=== PATIENT | female | born 1985 | race Caucasian/White ===

== ENCOUNTER 2016-06-17 09:43 | Emergency (ER) | payer MEDICAID ==
[2016-06-17] MEDS ORDERED: DEXAMETHASONE 10 MG/ML VIAL PO STA (11:42)
[2016-06-17] MEDS ORDERED: oxyCOD/ACETAMIN 5 MG/325 MG TABLET PO STA (11:42)
[2016-06-17] MEDS ORDERED: oxyCOD/ACETAMIN 5 MG/325 MG TABLET PO ONE (11:50)
[2016-06-17] MEDS ORDERED: CHERRY SYRUP 10 ML UDC PO ONE (11:50)
[2016-06-17] MEDS ORDERED: DEXAMETHASONE 20 MG/5 ML VIAL ONE (11:51)
[2016-06-17] MEDS ORDERED: LIDOCAINE PATCH 5% TOP ONE (13:17)
[2016-06-17] MEDS ORDERED: LIDOCAINE PATCH 5% TOP PRN (13:20)
== END 2016-06-17 13:25 | disposition home or self-care (01) ==
DX: M54.41 Lumbago with sciatica, right side (principal); Z97.5 Presence of (intrauterine) contraceptive device
CPT/HCPCS: 72170; 99283; A9270

== ENCOUNTER 2017-05-25 08:00 | Outpatient (CLI) | payer MEDICAID ==
[2017-06-17 14:12] LABS: HCG,QUALITATIVE BLOOD NEGATIVE
[2017-06-17 14:13] LABS: BASOPHILS # (AUTO) 0.1 10^3/uL (0.0-0.1); BASOPHILS % (AUTO) 0.9 %; EOSINOPHILS # (AUTO) 0.6 10^3/uL (0.0-0.7); EOSINOPHILS % (AUTO) 10.2 %; HGB - HEMOGLOBIN 12.4 g/dL (12.0-16.0); LYMPHOCYTES # (AUTO) 2.7 10^3/uL (1.5-3.5); LYMPHOCYTES % (AUTO) 45.5 %; MEAN CORPUSCULAR HGB CONC 33.2 g/dL (32.0-36.0); MEAN CORPUSCULAR VOLUME 93.3 fL (81.0-99.0); MEAN PLATELET VOLUME 7.8 fL (7.9-10.8); MONOCYTES # (AUTO) 0.5 10^3/uL (0.0-1.0); MONOCYTES % (AUTO) 7.8 %; NEUTROPHILS # (AUTO) 2.1 10^3/uL (1.5-6.6); NEUTROPHILS % (AUTO) 35.6 %; PLT - PLATELET COUNT 241 10^3/uL (130-450); RED BLOOD COUNT 4.01 10^6/uL (4.20-5.40); RED CELL DISTRIBUTION WIDTH 12.3 % (12.0-15.0); WHITE BLOOD COUNT 5.9 x10^3/uL (4.8-10.8)
== END 2017-05-25 23:59 | disposition home or self-care (01) ==
LOC: LAB.F 08:00
PROVIDERS: ATTEND Obstetrics & Gynecology
DX: Z53.9 Procedure and treatment not carried out, unspecified reason (principal)
CPT/HCPCS: 84703; 85025

== ENCOUNTER 2017-05-26 08:00 | Outpatient (CLI) | payer MEDICAID | END 2017-05-26 23:59 | disposition home or self-care (01) | LOC: LAB.F 08:00 | PROVIDERS: ATTEND Obstetrics & Gynecology | DX: Z53.9 Procedure and treatment not carried out, unspecified reason (principal) ==

== ENCOUNTER 2017-05-26 08:00 | Outpatient (CLI) | payer MEDICAID | END 2017-05-26 23:59 | disposition home or self-care (01) | LOC: LAB.F 08:00 | PROVIDERS: ATTEND Obstetrics & Gynecology | DX: N92.0 Excessive and frequent menstruation with regular cycle (principal) | CPT/HCPCS: 36415; 84703; 85025; 86850; 86900; 86901 ==

== ENCOUNTER 2017-05-26 10:38 | Day surgery (SDC) | payer MEDICAID ==
--- NOTE | 2017-05-25 15:13 | PREOP HISTORY & PHYSICAL ---
ANTICIPATED DATE OF ADMISSION: 05/26/2017. IDENTIFICATION: This is a 31-year-old G1-1-1-2, LMP 05/24/2017. HISTORY OF PRESENT ILLNESS: Mahnaz is a patient of [facility] whom I have been seeing since 2013. I saw patient on 10/12/2013 as a referral secondary to a 08/29/2013 ASCUS Pap smear with the presence of positive high risk human papillomavirus. Pap smears were followed and progressed to a low-grade squamous intraepithelial lesion on 2015. Patient underwent a 03/04/2016 cold knife cone biopsy, pathology revealed focal low-grade squamous intraepithelial lesion arising from the transitional zone, negative for invasive carcinoma or high-grade dysplasia. Her resulting Pap smears have been within normal limits. In addition, she has had a history of heavy irregular menstrual bleeding. She would have very heavy periods for 4 of the 5 days of her menstrual cycle. She will change a super tampon every 2-3 hours. She was having some significant dysmenorrhea with which she would cry on the bathroom floor. Her menses had worsened in November 2013, when she had 2 menses in a month. She received a Mirena IUD at the same time of her cold knife cone biopsy. Despite the Mirena IUD, patient continued to have very heavy vaginal bleeding. I discussed with her to do a trial of control pills, in addition to her Mirena IUD. Patient recalled that when she was on the control pill she felt very emotional on the pill. After discussion for patient regarding the options, specifically control pills, the IUD, Depo-Provera, endometrial ablation, hysterectomy, patient stated that she was done with having all this bleeding and dysmenorrhea and worrying about her abnormal Pap smears. She verbalized her desire to proceed with a total laparoscopic hysterectomy with cystoscopy. I discussed with patient the risks, benefits, alternatives, indications, expectations of the aforementioned procedure. Including in the risks were hemorrhage, infection, and damage to surrounding organs, which may be an inadvertent laceration cauterization or ligation of adjacent intestines, bladder, and ureters. Furthermore, with the surgery, she will no longer be able to have children, nor would she have menses. Patient understands that despite her cold knife cone biopsy, she is to still continue having routine Pap smears. After all of patient's questions were answered to her satisfaction, she verbalized her desire to proceed with surgery. Consent forms have been signed. The patient is currently doing well. She denies any nausea, vomiting, fevers, chills, diarrhea, constipation. She has repeatedly said that she does not want any more children, especially since she is status post a tubal sterilization with her last delivery. Her children are currently ages 10 and 8. PAST MEDICAL HISTORY 1. PMDD. 2. Depression. 3. Attention deficit hyperactivity disorder. 4. Anxiety. PAST SURGICAL HISTORY 1. Two deliveries with a bilateral tubal sterilization with her last delivery. 2. Tonsillectomy. 3. 03/04/2016 cold knife cone biopsy secondary to a low-grade squamous intraepithelial lesion. ALLERGIES 1. CODEINE, WITH WHICH SHE HAS HIVES. 2. LATEX, WITH WHICH SHE HAS A RASH. MEDICATIONS 1. Adderall 30 mg XR q.a.m. 2. Lexapro 10 mg q.a.m. SOCIAL HISTORY: She denies any tobacco use. She denies any illicit drug use. She does use alcohol on a social basis. Patient does have 2 children. She is a medical claims assistant. PAST OBSTETRICAL SURGERY: Two deliveries, one at 36 weeks, one at 37 weeks with a tubal sterilization after her last delivery. She did have a spontaneous miscarriage at age 18. PAST GYNECOLOGIC HISTORY: Status post cold knife cone biopsy on 03/04/2016 secondary low-grade squamous intraepithelial lesion on Pap smear. All subsequent Pap smears have been within normal limits. She has had a history of menorrhagia as well as dysmenorrhea. She had a trial of a Mirena IUD for her menorrhagia, but this was unsatisfactory. She has tried control pills in the past, but unfortunately she cannot tolerate it. FAMILY HISTORY: Mother and maternal aunts had uterine carcinoma. REVIEW OF SYSTEMS: Negative unless otherwise stated. OBJECTIVE VITAL SIGNS: Weight is 110 pounds. Height is 63 inches, BMI is 19.5. Blood pressure 116/78. GENERAL: The patient is a well-developed, female in no apparent distress. She is alert and oriented x3. Patient is very pleasant and easy to speak to. She is also very intelligent. HEENT: Within normal limits. CARDIOVASCULAR: Rate is regular. No murmurs or rubs. PULMONARY: Lungs are clear to auscultation bilaterally. ABDOMEN: Soft, nontender. No masses, rebound, rigidity or guarding. SKIN: She has 2 well-healed Pfannenstiel skin incisions. Her skin is loose secondary to her previous pregnancies. A 03/01/2017 Pap smear is negative. LABORATORY DATA: Most recent ultrasound performed on 11/29/2013 reveals a uterus measuring 10.5 x 4.2 x 5.3 cm, anteverted position, normal overall size and echotexture. Endometrium is 4 mm. Cervix unremarkable. Right ovary 2.6 x 1.7 x 1.9 cm. Normal echotexture and blood flow. Left ovary 3 x 2.9 x 3.2 cm, normal echotexture and blood flow, 2 cm dominant follicle. No free fluid. ASSESSMENT 1. A 31-year-old G3, P1-1-1-2. 2. Unsatisfactorily controlled menorrhagia. 3. History of dysmenorrhea. 4. History of low-grade squamous intraepithelial lesion, status post cold knife cone biopsy on 03/04/2016. PLAN 1. We will proceed to a scheduled total laparoscopic hysterectomy and cystoscopy on 05/26/2017. 2. Anticipate the patient going back to home about 3-4 hours after surgery. 3. Counseled patient to take ibuprofen and Tylenol after surgery as her main form of pain control. She has also been given a prescription for Dilaudid. Patient states that both she and the female relatives in her family require more narcotics than most people do. She recalls with her delivery, she would need to take 4 to 5 oxycodone to be equivalent to Dilaudid. In this situation, I have given patient a prescription for Dilaudid where I would normally give oxycodone. 4. Patient to get a hCG, CBC and type and screen in preparation for tomorrow's surgery. 5. Patient to see me at [facility] in 2 weeks for routine postop followup. TD: 05/25/2017 13:33 SVEN
[~2017-05-26 10:38] MED LIST: CELECOXIB 100 MG CAPSULE PO ONE; ceFAZolin 2 GM/50 ML 2 GM/50 ML BAG IV ONE
[2017-05-26] MEDS ORDERED: LACTATED RINGERS 1,000 ML IV ONE ×2 (10:51→13:44)
[2017-05-26] MEDS ORDERED: ACETAMINOPHEN 1,000 MG/100 ML 100 ML IV ONE (11:13)
[2017-05-26] MEDS ORDERED: GLYCOPYRROLATE 1 MG/5 ML VIAL IVP ONE (12:00)
[2017-05-26] MEDS ORDERED: NEOSTIGMINE 1 MG/1 ML 10 ML MDV IVP ONE (12:00)
[2017-05-26] MEDS ORDERED: fentaNYL 100 MCG/2 ML VIAL IVP ONE (12:00)
[2017-05-26] MEDS ORDERED: DEXAMETHASONE 4 MG/ML VIAL IVP ONE (12:00)
[2017-05-26] MEDS ORDERED: PROPOFOL 200 MG/20 ML VIAL IVP ONE (12:00)
[2017-05-26] MEDS ORDERED: ONDANSETRON 4 MG/2 ML VIAL IVP ONE (12:00)
[2017-05-26] MEDS ORDERED: MIDAZOLAM 2 MG/2 ML VIAL IVP ONE (12:00)
[2017-05-26] MEDS ORDERED: BUPIVACAINE 0.25% PF 30 ML VIAL ONE (12:20)
[2017-05-26] MEDS ORDERED: EPINEPHrine 1 MG/ML AMP ONE (12:21)
[2017-05-26] MEDS ORDERED: EPINEPHrine 1 MG/ML AMP IVP ONE (13:05)
[2017-05-26] MEDS ORDERED: BUPIVACAINE 0.25% PF 30 ML VIAL SUBQ ONE ×2 (13:05)
[2017-05-26] MEDS: fentaNYL 100 MCG/2 ML VIAL ONE ×5 (14:47→15:33)
--- NOTE | 2017-05-26 14:54 | OPERATIVE REPORT ---
Operative Report - Other Other Information/Narrative: Date of Operation: 05/26/2017 Surgeon: Jenifer Galvin DO FACOG Racing Secretary: Robbie Mayers MD FACOG Clean Room Assembler: Yuli Espinoza CRNA Anethesia: GET Pre-Op Dx: 1. 31 yo 2. Menorrhagia 3. Dysmenorrhea 4. H/O LGSIL pap Pre-Op Dx: 1. 31 yo 2. Menorrhagia 3. Dysmenorrhea 4. H/O LGSIL pap Procedure: 1. Laparoscopic total hysterectomy 2. Bilateral salpingectomy 3. Cystoscopy Findings: 1. Adhesions between uterus and anterior abdominal wall 2. Partially absent segments of bilateral fallopian tubes 3. Otherwise normal uterus, ovaries, and fallopian tubes 4. Normal liver edge and appendix 5. Bilateral ureteral jets seen during cystoscopy Specimens: 1. Left fallopian tube 2. Uterus and right fallopian tube en-bloc Drains: None EBL: 100 mL Complications: None Dictation: [id number]
[2017-05-26] MEDS ORDERED: KETOROLAC 30 MG/ML VIAL ONE (15:16)
[2017-05-26] MEDS: HYDROmorphone 1 MG/ML SYRINGE ONE ×3 (15:21→15:34)
[2017-05-26] MEDS ORDERED: SODIUM CHLORIDE FLUSH 0.9% 10 ML SYRINGE ONE ×2 (15:30→15:49)
[2017-05-26] MEDS ORDERED: LORazepam 2 MG/ML VIAL ONE (15:46)
[2017-05-26] MEDS ORDERED: ONDANSETRON 4 MG/2 ML VIAL ONE (16:15)
[2017-05-26] MEDS ORDERED: SCOPOLAMINE PATCH TOP ONE (16:22)
[2017-05-26 16:37] VITALS: BP 119/62
--- NOTE | 2017-05-27 14:14 | OPERATIVE REPORT ---
DATE OF OPERATION: 05/26/2017 PREOPERATIVE DIAGNOSES 1. A 31-year-old G3, P1-1-1-2. 2. Menorrhagia. 3. Dysmenorrhea. 4. History of low-grade squamous intraepithelial lesion Pap smear. POSTOPERATIVE DIAGNOSES 1. A 31-year-old G3, P1-1-1-2. 2. Menorrhagia. 3. Dysmenorrhea. 4. History of low-grade squamous intraepithelial lesion Pap smear. PROCEDURE 1. Laparoscopic total hysterectomy. 2. Bilateral salpingectomy. 3. Cystoscopy. SURGEON: Jenifer Galvin DO, FACOG COST ESTIMATING CLERK: Robbie Mayers MD, FACOG BLENDER CONVEYOR OPERATOR: Yuli Espinoza CRNA ANESTHESIA: General endotracheal tube. FINDINGS 1. Adhesions between the uterus and anterior abdominal wall, as well as between the omentum and anterior abdominal wall. 2. Partially absent segments of bilateral fallopian tubes, consistent with a prior tubal sterilization. 3. Otherwise, normal uterus, ovaries, and fallopian tubes. 4. Normal liver edge and appendix. 5. Bilateral ureteral jets seen during cystoscopy at the termination of this surgery. SPECIMENS 1. Left fallopian tube. 2. Uterus and right fallopian tube en bloc, both specimens placed in the same specimen container. DRAINS: None. ESTIMATED BLOOD LOSS: 100 mL COMPLICATIONS: None. BRIEF HISTORY: Patient is a patient of [facility] with whom I have been taking care of. Patient was first referred to me secondary to history of ASCUS Pap smears. The Pap smears were watched, and it progressed to a low-grade squamous intraepithelial lesion. Patient did get a cold knife cone biopsy, which was consistent with the Pap smears. The margins were clear. Cold knife cone was performed in 2013. Since then, her Pap smears have within normal limits. In the recent couple of years, patient has been having worsening menorrhagia and dysmenorrhea. She was unable to do a trial of control pill since in the past she has had too many emotional swings with it. She did try the Mirena IUD in order to help alleviate the menorrhagia. Unfortunately, none had worked to her satisfaction. Patient at this point wanted definitive therapy with a hysterectomy. I discussed with the patient the risks, benefits, alternatives, indications, expectations of a total laparoscopic hysterectomy, bilateral salpingectomy, and cystoscopy. Patient understood that we can still try different methods of controlling her symptoms, including systemic control pills, the IUD again, and endometrial ablation. Patient understood that there were risks of hemorrhage, infection and damage to organs, specifically for an inadvertent laceration, cauterization, or ligation of the adjacent ureters, bladder, and intestines. Patient understood that with this procedure she will no longer be able to have menses, nor will she be able to have children. After all of patient's questions were answered to her satisfaction, she verbalized her desire to proceed with surgery. Consent forms have been signed. OPERATION IN DETAIL: Patient was identified, consented, and taken to the operating room where IV access was already in place. She was given sequential compression devices which were placed on her lower legs and turned on. Two grams of Ancef were given to patient for postoperative cellulitis prophylaxis. She was then given satisfactory general endotracheal tube anesthesia as per Yuli Espinoza. She was then prepped and draped in normal sterile fashion in the lithotomy position using Yellofin stirrups. Payton catheter was placed in the bladder. A timeout was performed, which correctly identified the patient, site of the procedures, and the procedures themselves. A medium VCare uterine manipulator and colpotomizer was placed in the uterus and cervix. Next, 3 laparoscopic incisions were identified in the abdomen. The first was in the subumbilical fold, the next ones in the right lower quadrant and the left lower quadrants. These quadrant sites were identified by finding the respective anterior superior iliac spine and moving, 2 fingerbreadths superior and medial to these points. All 3 laparoscopic sites were injected with 0.5% lidocaine with epinephrine. Approximately a total of 15 mL was used. Entrance of the abdomen was made directly with a Visiport trocar. No trauma to intra-abdominal organs was noted. CO2 gas was then used to insufflate the abdomen, and visual confirmation of entry into the abdomen was made. Satisfactory pneumoperitoneum was obtained. Inspection of the abdomen revealed a normal appendix and liver edge. There were significant adhesions of the omentum to the anterior abdominal wall, as well as between the uterus and the anterior abdominal wall. These findings are most likely consistent with patient's history of delivery x2. It was patient's understanding that she had both fallopian tubes removed during her last delivery. Apparently, she only underwent a partial salpingectomy. The adhesions between the omentum and the anterior abdominal wall were first addressed. These adhesions were lysed using a LigaSure. Next, attention was turned towards the right uterus. Since the patient's uterus was rotated so that the right portion of the uterus was rotated anteriorly and the left portion of the uterus was rotated posteriorly. The right side was more free than the left side. The right fallopian tube was identified and followed out to its fimbriated end. The fallopian tube was then clamped, cut, and cauterized using the LigaSure. The incision was made on the right round ligament and extended inferiorly through the broad ligament. An incision was made then in the adhesion between the uterus and anterior abdominal wall. The uterus was then taken down from the anterior abdominal wall. This released a large amount of adhesions. Better visualization was obtained, and we further took down the right side. The right uterine artery was identified, clamped, cauterized, and incised using a LigaSure. A bladder flap was then developed bluntly and with electrocautery. The cardinal ligaments were also clamped, cauterized, and incised. The left aspect of the uterus was then addressed. The left fallopian tube was identified and followed to its fimbriated end. The left fallopian tube was then clamped, cauterized, and incised just inferiorly to the mesosalpinx. In similar fashion, the round ligament and broad ligament were then clamped, cauterized, and incised with the LigaSure. This incision was carried inferiorly , so that the uterine artery was similarly transected. Finally, the right cardinal ligaments were clamped, cauterized, and incised. The bladder flap was further developed. At this point in time, the edges of the VCare colpotimizer cups were identified as they were seen as indentations in the vagina. An incision was made with the Harmonic. The cervix was then excised from the vagina. The LigaSure was used to obtain hemostasis on the vaginal cuff, mainly on the posterior aspect. The vaginal cuff was then closed with a running stitch of V-Loc 2-0. The pelvis was then copiously irrigated and found to be hemostatically stable. The ovaries looked within normal limits. Cystoscopy was then performed using a 0-degree cystoscope. Saline solution was used as a distending medium. The bladder was fully inspected and no bleeding, suture material, cautery, or lacerations were seen in the bladder. The left and right ureteral orifices were identified and jets were seen coming out bilaterally. At this point in time, the procedure had been completed. All instruments were removed out of the abdomen and vagina. CO2 was allowed to egress into the atmosphere, thus relieving the pneumoperitoneum. The Payton catheter was also left outside after cystoscopy. All sponge, lap and needle counts were correct x 2 as per nurse report. The patient tolerated the procedure well and was taken back to the recovery room in stable condition. Patient will be discharged to home later today after postoperative criteria have been met. Patient already has a prescription for Dilaudid for postoperative pain control should ibuprofen and Tylenol not take care of the majority of her pain. Patient is to see me at [facility] in 2 weeks for routine postoperative incision check. Patient understands that she still needs to do routine Pap smear screenings, given her history of low-grade squamous intraepithelial lesion Pap smears and cold knife cone biopsy. TD: 05/26/2017 21:36 SVEN
== END 2017-05-26 10:39 | disposition home or self-care (01) ==
LOC: SDS 10:38
PROVIDERS: ATTEND Obstetrics & Gynecology
PROC: 0UT9FZZ Resection of Uterus, Via Natural or Artificial Opening With Percutaneous Endoscopic Assistance (ICD-10-PCS; principal; 2017-05-26 11:45)
PROC: 0UT7FZZ Resection of Bilateral Fallopian Tubes, Via Natural or Artificial Opening With Percutaneous Endoscopic Assistance (ICD-10-PCS; 2017-05-26 11:45)
DX: N92.0 Excessive and frequent menstruation with regular cycle (principal); N94.6 Dysmenorrhea, unspecified; N83.8 Other noninflammatory disorders of ovary, fallopian tube and broad ligament; Z87.410 Personal history of cervical dysplasia; K66.0 Peritoneal adhesions (postprocedural) (postinfection); F32.81 Premenstrual dysphoric disorder
CPT/HCPCS: 58552; 88307; A9270; J0131; J0690; J1170; J2060; J3490; J7120

== ENCOUNTER 2017-06-17 08:33 | Emergency (ER) | payer MEDICAID ==
[2017-06-17] MEDS ORDERED: oxyCODONE 5 MG TABLET PO STA ×2 (09:58→12:48)
[2017-06-17] MEDS ORDERED: DEXAMETHASONE 10 MG/ML VIAL PO STA (09:58)
--- NOTE | 2017-06-17 10:02 | ED Physician Documentation ---
History of Present Illness - Stated complaint Stated Complaint: R FOOT NUMB,R LEG PX - Chief complaint Chief Complaint: General - Additonal information Additional information: hx from pt 31 f 3 wk s/p hyst for 2B uterine cancer also longer hx sciaitica - never saw PMD for same today inc lack pain and mik S1 dermatome radicular pain and numbness to lateral R foot and urinary incontinence no fever per op report general anesthesia not spinal Review of Systems Constitutional: denies: Fever Cardiac: denies: Chest pain / pressure Respiratory: denies: Dyspnea GI: denies: Abdominal Pain : reports: Hysterectomy. denies: Incontinent, Now EGA Musculoskeletal: reports: Back pain, Extremity pain Neurologic: reports: Numbness Immunocompromised: denies: Immunocompromised PD PAST MEDICAL HISTORY - Past Medical History Cardiovascular: None Respiratory: None Endocrine/Autoimmune: None GI: None : None HEENT: None Psych: Depression, Anxiety Musculoskeletal: None Derm: None - Past Surgical History Past Surgical History: Yes /SUPERVISOR SUNGLASSES: section, Tubal ligation HEENT: Tonsil/Adenoidectomy - Present Medications Home Medications: Ambulatory Orders Medication Instructions Recorded Confirmed Dextroamphetamine/Amphetamine 30 mg PO DAILY 05/26/17 05/26/17 [Adderall Xr 30 mg Capsule] Escitalopram [Lexapro] 10 mg PO DAILY 05/26/17 05/26/17 Estradiol [Estrace] 1 mg PO DAILY 06/17/17 HYDROcod/ACETAM 5/325 [[place] 5/325] 1 ea PO Q6H PRN #10 tablet 06/17/17 predniSONE [Deltasone] 20 mg PO [id number] #21 tab 06/17/17 - Allergies Allergies/Adverse Reactions: Allergies Allergy/AdvReac Type Severity Reaction Status Date / Time latex Allergy Severe Hives Verified 06/17/17 08:46 codeine AdvReac Rash Verified 06/17/17 08:46 - Social History Does the pt smoke?: No Smoking Status: Never smoker Does the pt drink ETOH?: No Does the pt have substance abuse?: No - Immunizations Immunizations are current?: Yes - POLST Patient has POLST: No PD ED PE NORMAL - Vitals Vital signs reviewed: Yes - Cardiac Cardiac: RRR - Respiratory Respiratory: No respiratory distress, Clear bilaterally - Abdomen Abdomen: Soft, Non tender - Back Back: No spinal TTP (and no focal redness swelling TTP) - Derm Derm: Normal color - Extremities Extremities: No edema, No calf tenderness / cord - Neuro Neuro: Other (no saddle anesthesia, dec seansation R S1, hip flex/knee ext/foot dorsi plantar felxion/great toe ext 5/5, no clonus, neg SLR (pain is severe down leg either way)) Results - Vitals Vitals: Vital Signs - 24 hr 06/17/17 06/17/17 06/17/17 08:41 12:15 14:34 Temperature 36.8 C 37.0 C 37.1 C Heart Rate 94 85 84 Respiratory 15 18 20 Rate Blood Pressure 134/76 H 102/56 L 121/66 O2 Saturation 100 98 98 Oxygen O2 Source Room air - Rads (name of study) MRI L spine with / without Radiology: See rad report (no cauda equina or epidural abscess or mets - does have some small HNP one of which is compressing R S1 nerve root) Departure - Departure Disposition: 01 Home, Self Care Clinical Impression: Sciatica Qualifiers: Laterality: right Qualified Code(s): M54.31 - Sciatica, right side Condition: Good Instructions: Lumbar Radiculopathy, ED Sciatica Follow-Up: JOHN SMYTH [Primary Care Provider] - Prescriptions: HYDROcod/ACETAM 5/325 [[place] 5/325] 1 ea PO Q6H PRN #10 tablet PRN Reason: Severe Pain predniSONE [Deltasone] 20 mg PO [id number] #21 tab Comments: The MRI does not show any cancer in your spine. Also no spinal cord compression or infection of the spine. There is a small herniated disk putting pressure on the right S1 nerve root which would explain your pain and numbness I recommend a course of steroids to decrease the nerve irritation and pain medications to be used sparingly Many herniated disks do not need any surgery etc - usually rest and physical therapy are recommended as first line of treatment - please discuss with your PMD Forms: Activity restrictions Discharge Date/Time: 06/17/17 14:34
[2017-06-17] MEDS ORDERED: CHERRY SYRUP 10 ML UDC PO ONE (10:21)
[2017-06-17] MEDS ORDERED: GADOBUTROL 7.5 MMOL/7.5 ML VIAL ONE (11:29)
[2017-06-17] MEDS ORDERED: GADOBUTROL 7.5 MMOL/7.5 ML VIAL IVP ONE (12:08)
--- NOTE | 2017-06-17 12:56 | MRI Preliminary Report ---
Exam: MRI LUMBAR SPINE W/WO IMPRESSION: 1. Minimal degenerative disk and facet changes in the lower lumbar spine. 2. Small central and right paracentral disk protrusion at L5-S1 resulting in mild mass effect on the right S1 nerve root. 3. Minimal disk bulges at L3-L4 and L4-L5 without gross stenosis or mass effect on the adjacent nerve roots. Comment: The following findings are so common in adults without low back pain that while we report th eir presence, they must be interpreted with caution and in the context of the clinical situation. (Re maria elena Adair et al, Spine 2001) Prevalence of findings in patients without low back pain: Disk degeneration (any evidence): 92% Disk desiccation/T2 signal loss: 83% Disk height loss: 56% Disk bulge: 64% Disk protrusion: 32% Annular tear/high intensity zone: 38% RADIA SITE ID: [id number]
--- NOTE | 2017-06-17 13:24 | MRI Report ---
EXAM: MRI LUMBAR SPINE WITHOUT AND WITH CONTRAST EXAM DATE: 06/17/2017 11:15 AM. CLINICAL HISTORY: Uterine ca, back pain, S1 radiculopathy. COMPARISONS: None. TECHNIQUE: Multiplanar, multisequence T1-weighted and fluid-sensitive sequences of the lumbar spine f rom T12 to S1 before and after administration of intravenous contrast. Other: None. IV contrast: 5 mm Gadavist. FINDINGS: Spinal Cord: The conus terminates at T12. The conus medullaris and cauda equina are unremarkable. Alignment: No scoliosis or spondylolisthesis. Bone Marrow: Five [id number] lumbar vertebral bodies are assumed. No gross fractures or bone les ions. No bone marrow edema or abnormal enhancement. Disk Levels/Facets: Disk desiccation and minimal disk height loss at L5-S1. T12-L1: Unremarkable. L1-L2: Unremarkable. L2-L3: Unremarkable. L3-L4: Minimal right paracentral disk bulge. Minimal bilateral facet of her cheek. No stenosis. L4-L5: Small broad-based disk bulge. Minimal bilateral facet hypertrophy. Disk minimally effaces the anterior aspect of the thecal sac. L5-S1: Small broad-based disk bulge with superimposed small central and right paracentral disk protru jayshree. Minimal bilateral facet hypertrophy. Disk protrusion results in mild mass effect on the nick ing right S1 nerve root. No gross stenosis. Spinal Canal: No enhancing masses within the spinal canal. No epidural abscess. Musculature: . No edema, abnormal enhancement, or fatty atrophy. Other: The visualized retroperitoneum is unremarkable. IMPRESSION: 1. Minimal degenerative disk and facet changes in the lower lumbar spine. 2. Small central and right paracentral disk protrusion at L5-S1 resulting in mild mass effect on the right S1 nerve root. 3. Minimal disk bulges at L3-L4 and L4-L5 without gross stenosis or mass effect on the adjacent nerve roots. Comment: The following findings are so common in adults without low back pain that while we report th eir presence, they must be interpreted with caution and in the context of the clinical situation. (Re maria elena Adair et al, Spine 2001) Prevalence of findings in patients without low back pain: Disk degeneration (any evidence): 92% Disk desiccation/T2 signal loss: 83% Disk height loss: 56% Disk bulge: 64% Disk protrusion: 32% Annular tear/high intensity zone: 38% RADIA Referring Provider Line: [phone] SITE ID: [id number]
[2017-06-17 14:36] VITALS: BP 121/66
== END 2017-06-17 14:34 | disposition home or self-care (01) ==
LOC: ED 08:33
DX: M54.31 Sciatica, right side (principal); Z85.89 Personal history of malignant neoplasm of other organs and systems; Z90.710 Acquired absence of both cervix and uterus
CPT/HCPCS: 72158; 99283; A9270; A9585

== ENCOUNTER 2018-03-13 13:00 | Outpatient (CLI) | payer MEDICAID ==
--- NOTE | 2018-03-14 09:20 | Ultrasound Report ---
Reason: ENLARGED LYMPH NODE Procedure Date: 03/13/2018 Accession Number: [id number] / [id number] Procedure: US - Ext Limited Non Vascular CPT Code: FULL RESULT: EXAM: LEFT UPPER EXTREMITY ULTRASOUND, AXILLA - LIMITED EXAM DATE: 03/13/2018 01:53 PM. CLINICAL HISTORY: Enlarged lymph node. COMPARISON: None. TECHNIQUE: Real-time scanning was performed with static images obtained. FINDINGS: 2 lymph nodes identified within the axilla measuring 0.9 x 0.4 x 0.8 cm and 1.1 x 0.5 x 0.6 cm. Both demonstrate moderate fatty myriam and no aylin suspicious features. No aylin adenopathy. No mass, cyst, fluid collection or other sonographic abnormality. IMPRESSION: 1. 2 nonenlarged left axillary lymph nodes demonstrated. 2. No aylin adenopathy or other sonographic abnormality. RADIA
== END 2018-03-13 13:01 | disposition home or self-care (01) ==
LOC: DI 13:00
PROVIDERS: ATTEND Naturopath
DX: R59.0 Localized enlarged lymph nodes (principal)
CPT/HCPCS: 76882

== ENCOUNTER 2018-06-23 09:28 | Outpatient (CLI) | payer MEDICAID ==
--- NOTE | 2018-06-23 15:54 | Mammography Report ---
Reason: DIFFUSE CYSTIC MASTOPATHY, FAM HX OF BREAST CA Procedure Date: 06/23/2018 Accession Number: [id number] / [id number] Procedure: [facility] - Diagnostic Dig Bilat CPT Code: FULL RESULT: EXAM: Diagnostic Dig Bilat, Breast Unilateral Limited DATE: 06/23/2018 10:39 AM CLINICAL HISTORY: Palpable lump per patient left axilla. Family history of breast cancer maternal aunt age 45 and maternal grandmother age 50 TECHNIQUE: (B) - Bilateral CC and MLO views were obtained. Additional coned magnified left MLO view and 90 degree lateral left mammogram. Real-time ultrasound performed by both the technologist and the radiologist. COMPARISON: Left axillary ultrasound 03/13/2018 PARENCHYMAL PATTERN: (D) - The breasts demonstrate heterogeneously dense fibroglandular parenchyma bilaterally. FINDINGS: Bilateral breasts: There are no suspicious masses, calcifications, or areas of distortion. There is no mammographic finding of concern in the region of palpable lump per patient left axilla marked with an external marker. Targeted ultrasound of the left axilla is performed in the region of palpable lump per patient. Normal axillary lymph nodes and normal axillary tissues noted tissue noted. No masses or concerning findings. IMPRESSION: Negative examination. BI-RADS category 1 . Normal bilateral imaging findings. No imaging finding of concern in the region of the palpable lump per patient left axilla. Clinical follow-up is recommended for palpable findings: Patient was instructed to return for increase in current symptoms or new symptoms/concerns. From an imaging standpoint, annual mammography should be performed appropriate to risk status (age 40 for average risk, age 30 for increased risk). RECOMMENDATION: (ANNUAL) - Recommend routine annual screening mammography. Given family history, patient may be at increased risk for development of breast cancer. Formal risk assessment with a genetic counselor should be considered; patient may benefit from advanced screening practices and/or risk reduction strategies if there is sufficient assessed risk. BI-RADS CATEGORY: (1) - Negative STANDARD QUALIFYING STATEMENTS: 1. This examination was not reviewed with the aid of Computer-Aided Detection (CAD). 2. A negative or benign imaging report should not preclude biopsy if clinically suspicious findings are present. 3. Dense breasts may obscure an underlying neoplasm. 4. This examination was reviewed with the aid of 3D breast imaging (tomosynthesis).
== END 2018-06-23 09:29 | disposition home or self-care (01) ==
LOC: DI 09:28
PROVIDERS: ATTEND Naturopath
DX: N60.19 Diffuse cystic mastopathy of unspecified breast (principal); Z80.3 Family history of malignant neoplasm of breast; Z85.41 Personal history of malignant neoplasm of cervix uteri
CPT/HCPCS: 76642; 77066